=== PATIENT | male | born 1990 | race Caucasian/White ===

== ENCOUNTER 2024-05-12 12:48 | Emergency (ER) | payer OTHER ==
--- NOTE | 2024-05-12 13:36 | ER ---
Nurse's Notes [facility] Name: Celso Garza Age: 34 yrs Sex: Male : 1990 Arrival Date: 05/12/2024 Time: 12:48 Bed 4 Private MD: Diagnosis: Strain of muscle(s) and tendon(s) of the rotator cuff of right shoulder Presentation: 05/12 12:53 Chief complaint: Patient states: pulling a "come along" just prior to arrival and felt ss a pop in the shoulder. Coronavirus screen: Client denies travel out of the [place] in the last 14 days. Ebola Screen: Patient denies exposure to infectious person. Patient denies travel to an Ebola-affected area in the 21 days before illness onset. Initial Sepsis Screen: Does the patient meet any 2 criteria? No. Patient's initial sepsis screen is negative. Does the patient have a suspected source of infection? No. Patient's initial sepsis screen is negative. Risk Assessment: Do you want to hurt yourself or someone else? Patient reports no desire to harm self or others. Onset of symptoms was May 12, 2024. 12:53 Method Of Arrival: Ambulatory ss 12:53 Acuity: REBA 4 ss Historical: - Allergies: 12:54 No Known Allergies; ss - Home Meds: 12:54 None [Active]; ss - PMHx: 12:54 None; ss - PSHx: 12:54 None; ss - Immunization history:: Client reports having NOT received the Covid vaccine. - Infectious Disease History:: Denies. - Social history:: Smoking status: Patient denies any tobacco usage or history of. Screenin:55 Abuse screen: Denies threats or abuse. Denies injuries from another. Nutritional ss screening: No deficits noted. Tuberculosis screening: Never had TB. Assessment: 12:55 General: Appears in no apparent distress. comfortable, Behavior is calm, cooperative, ss Denies fever, feeling ill, fatigue, chills. Pain: Complains of pain in R shoulder Pain currently is 7 out of 10 on a pain scale. Quality of pain is described as aching, tender, Pain began suddenly, Is continuous. Neuro: Level of Consciousness is awake, alert, obeys commands, Oriented to person, place, time, situation. Respiratory: Airway is patent Respiratory effort is even, unlabored, Respiratory pattern is regular, symmetrical. EENT: Oral mucosa is moist. Derm: Skin is intact, is healthy with good turgor, Skin is pink, warm \\T\\ dry. normal. Vital Signs: 12:53 BP 129 / 88; Pulse 90; Resp 16; Temp 98.2(O); Pulse Ox 98% on R/A; Weight 149.69 kg; ss Height 6 ft. 2 in. ; Pain 7/10; 12:53 Body Mass Index 42.37 (149.69 kg, 187.96 cm) 12:53 Pain Scale: Adult ED Course: 12:52 Patient arrived in ED. ss 12:54 Traci Villavicencio MD is Attending Physician. gb1 12:54 Triage completed. ss 12:54 Arm band placed on right wrist. ss 12:55 Patient has correct armband on for positive identification. Bed in low position. 12:57 Mackenzie Alfaro RN is Primary Nurse. 13:33 Blayne Hyatt MD is Referral Physician. gb1 13:42 Shoulder Left (2 View) XRAY In Process Unspecified. EDMS 15:08 No provider procedures requiring assistance completed. Patient did not have IV access hb during this emergency room visit. Administered Medications: 14:14 Not Given (Patient Refused): [id number] mg IM once tm6 Outcome: 13:35 Discharge ordered by MD. gb1 14:50 Discharge ordered by MD. gb1 15:08 Discharged to home ambulatory, hb 15:08 Condition: stable 15:08 Discharge instructions given to patient, Instructed on discharge instructions, follow up and referral plans. medication usage, Demonstrated understanding of instructions, follow-up care, medications, Prescriptions given X 1, 15:08 Patient left the ED. hb Signatures: Dispatcher [employer] EDMS Mackenzie Alfaro RN RN Sravani Chow RN RN hb Traci Villavicencio MD MD gb Ajit Gan RN tm6 Corrections: (The following items were deleted from the chart) 12:57 12:53 Acuity: REBA 3 [facility]
--- NOTE | 2024-05-12 13:36 | EDPHYS ---
Physician Documentation [facility] Name: Celso Garza Age: 34 yrs Sex: Male : 1990 Arrival Date: 05/12/2024 Time: 12:48 Bed 4 Private MD: ED Physician Traci Villavicencio HPI: 05/12 13:43 This 34 yrs old Male presents to ER via Ambulatory with complaints of Shoulder Pain. gb1 13:43 . gb1 Historical: - Allergies: 12:54 No Known Allergies; ss - Home Meds: 12:54 None [Active]; ss - PMHx: 12:54 None; ss - PSHx: 12:54 None; ss - Immunization history:: Client reports having NOT received the Covid vaccine. - Infectious Disease History:: Denies. - Social history:: Smoking status: Patient denies any tobacco usage or history of. Vital Signs: 12:53 BP 129 / 88; Pulse 90; Resp 16; Temp 98.2(O); Pulse Ox 98% on R/A; Weight 149.69 kg; ss Height 6 ft. 2 in. ; Pain 7/10; 12:53 Body Mass Index 42.37 (149.69 kg, 187.96 cm) ss 12:53 Pain Scale: Adult ss MDM: 12:58 Medical Screening Exam initiated gb1 13:43 Data reviewed: vital signs, nurses notes. ED course: . gb1 05/12 13:28 Order name: Shoulder Left (2 View) XRAY; Complete Time: 13:57 gb1 Administered Medications: 14:14 Not Given (Patient Refused): [id number] mg IM once tm6 Disposition Summary: 05/12/24 14:50 Discharge Ordered Notes: Location: Home(05/12/24 14:50) gb1 Condition: Stable(05/12/24 14:50) gb1 Diagnosis - Strain of muscle(s) and tendon(s) of the rotator cuff of right shoulder gb1 Followup: gb1 - With: Private Physician - When: - Reason: Recheck today's complaints, Continuance of care Discharge Instructions: - Discharge Summary Sheet gb1 - Rotator Cuff Tear gb1 Forms: - Medication Reconciliation Form gb1 - Antibiotic Education gb1 - Prescription Opioid Use gb1 - Patient Portal Instructions gb1 - Leadership Thank You Letter gb1 Prescriptions: - Ibuprofen 800 mg Oral Tablet - take 1 tablet ORAL route every 8 hours As needed take with food; 30 tablet; gb1 Refills: 0, Product Selection Permitted Signatures: Dispatcher [employer] EDMS Mackenzie Alfaro RN RN ss Traci Villavicencio MD MD gb1 Ajit Gan RN tm6 Corrections: (The following items were deleted from the chart) 13:48 13:35 Home gb1 gb1 13:48 13:35 chronic gb1 gb1 13:48 13:35 have improved gb1 gb1 13:48 13:35 Stable gb1 gb1 13:48 13:35 Cellulitis of right lower limb gb1 gb1 13:49 13:43 34-year-old male comes to the ER with his mom from AFTER seeing Dr. rae House for a right thigh abscess. He is currently on 2 oral antibiotics and sees Dr. Hyatt for management of this wound. He denies any fever or purulent drainage from the wound.. gb1 13:51 13:43 ED course: 34-year-old male with a known right thigh abscess which is with a gb1 concavity but without any acute purulent drainage. There is a surrounding cellulitis which is currently being treated with 2 oral antibiotics and management by Dr. Hyatt. The patient does not meet criteria for emergent surgery at this time for incision and drainage but will be followed closely next week by Dr. Hyatt in the office. We have also arranged to prescribe topical Bactroban along with instructions on care for wound dressing. Patient is mom as well as he are compliant with this plan of care at discharge home.. gb1 13:51 13:43 Constitutional: This is a well developed, well nourished patient who is awake, gb1 alert, and in no acute distress. Head/Face: Normocephalic, atraumatic. Eyes: Pupils equal round and reactive to light, extra-ocular motions intact. Lids and lashes normal. Conjunctiva and sclera are non-icteric and not injected. Cornea within normal limits. Periorbital areas with no swelling, redness, or edema. ENT: Nares patent. No nasal discharge, no septal abnormalities noted. Tympanic membranes are normal and external auditory canals are clear. Oropharynx with no redness, swelling, or masses, exudates, or evidence of obstruction, uvula midline. Mucous membranes moist. Neck: Trachea midline, no thyromegaly or masses palpated, and no cervical lymphadenopathy. Supple, full range of motion without nuchal rigidity, or vertebral point tenderness. No Meningismus. Chest/axilla: Normal chest wall appearance and motion. Nontender with no deformity. No lesions are appreciated. Cardiovascular: Regular rate and rhythm with a normal S1 and S2. No gallops, murmurs, or rubs. Normal PMI, no JVD. No pulse deficits. Respiratory: Lungs have equal breath sounds bilaterally, clear to auscultation and percussion. No rales, rhonchi or wheezes noted. No increased work of breathing, no retractions or nasal flaring. Abdomen/GI: Soft, non-tender, with normal bowel sounds. No distension or tympany. No guarding or rebound. No evidence of tenderness throughout. Back: No spinal tenderness. No costovertebral tenderness. Full range of motion. Skin: The area of the right middle lateral thigh is somewhat indurated with an area of concavity where there appears to be muscle but no purulent drainage. Is tender around the area of the wound. 3 out of 10. MS/ Extremity: Pulses equal, no cyanosis. Neurovascular intact. Full, normal range of motion. Neuro: Awake and alert, GCS 15, oriented to person, place, time, and situation. Cranial nerves II-XII grossly intact. Motor strength 5/5 in all extremities. Sensory grossly intact. Cerebellar exam normal. Normal gait. gb1
--- NOTE | 2024-05-12 13:52 | RAD REPORT ---
EXAMINATION: Shoulder Left 2+ Views CLINICAL INDICATION: Male, 34 years old. PAIN RIGHT COMPARISON: No prior exam. FINDINGS: No shoulder fracture or dislocation. No significant focal degenerative changes. Other findings: n/a IMPRESSION: No acute shoulder abnormalities.
[2024-05-12] MEDS ORDERED: KETOROLAC 30 MG/ML INJ ONE (14:04)
[2024-05-12 15:22] VITALS: BP 129/88; TEMP 98.2; O2SAT 98
== END 2024-05-12 15:08 | disposition home or self-care (01) ==
LOC: ER 12:48
DX: S46.012A Strain of muscle(s) and tendon(s) of the rotator cuff of left shoulder, initial encounter (principal)
CPT/HCPCS: 99283